=== PATIENT | female | born 1955 | race Caucasian/White ===

== ENCOUNTER → 2022-10-14 | Outpatient (CLI) | payer BC ==
[2022-10-14 15:42] LABS: Basophils # (A) 0.03 X 10*3/uL (0.00-0.10); Basophils % (A) 0.5 %; Eosinophils # (A) 0.15 X 10*3/uL (0.04-0.35); Eosinophils % (A) 2.6 %; HCT 47.8 % (37.2-46.3); HGB 15.2 g/dL (12.0-15.0); Immature Grans, Automated 0.4 %; Lymphocytes # (A) 2.05 X 10*3/uL (0.90-5.00); MCHC 31.8 g/dL (32.0-37.0); MCV 91.2 fL (80.0-97.0); Mean Platelet Volume 11.7 fL (9.5-12.2); Monocytes # (A) 0.39 X 10*3/uL (0.20-1.00); Monocytes % (A) 6.8 %; NRBC Per 100 WBC 0 /100 WBCS (0.0-0.0); Neutrophils # (A) 3.06 X 10*3/uL (1.80-7.70); Neutrophils % (A) 53.7 %; Platelet Count 182 X 10*3/uL (140-440); RBC 5.24 X 10*6/uL (4.10-5.20); RDW 12.7 % (11.5-14.5)
[2022-10-14 16:26] LABS: ALT 23 U/L (8-44); AST 18 U/L (13-35); African American GFR (CKD) 89.3 (60.0-200.0); Albumin 4.6 g/dL (3.8-4.9); Albumin/Globulin Ratio 2.08 (1.60-3.17); Alkaline Phosphatase 105 U/L (41-126); BUN/Creat Ratio 15.54 Ratio (12.00-20.00); Blood Urea Nitrogen 12.4 mg/dL (9.0-27.0); Calcium 10.2 mg/dL (8.7-10.3); Chloride 108 mmol/L (96-109); Chol/HDL Ratio 3.23 Ratio; Globulin 2.2 g/dL (1.6-3.3); Glucose 121 mg/dL (70-110); Non-African American GFR(CKD) 77.1 (60.0-200.0); Potassium 5.2 mmol/L (3.5-5.5); Sodium 143 mmol/L (135-145); Total Protein 6.7 g/dL (6.2-8.2)
--- NOTE | 2022-10-20 08:40 | MM ---
Reason for Exam: Screening (asymptomatic). Last mammogram was performed 3 year(s) and 0 month(s) ago. Patient History: Menarche at age 14. First Full-Term at age 27. Postmenopausal. Patient has history of breast feeding. Risk Values: Mary Kay 5 year model risk: 1.9%. NCI Lifetime model risk: 6.7%. Prior Study Comparison: 01[facility]11[facility] 10[facility]/2019 [facility] . Tissue Density: The breast tissue is heterogeneously dense. This may lower the sensitivity of mammography. Findings: Analyzed By CAD. There is no suspicious group of microcalcifications or new suspicious mass in either breast. Overall Assessment: Negative, BI-RAD 1 Management: Screening Mammogram of both breasts in 1 year. A clinical breast exam by your physician is recommended on an annual basis and results should be correlated with mammographic findings. Electronically signed and approved by: Rui Becerra D.O.
== END | disposition home or self-care (01) ==
LOC: RADMAMWWP 07:08
PROVIDERS: ATTEND Family Medicine
DX: Z12.31 Encounter for screening mammogram for malignant neoplasm of breast (principal); Z00.01 Encounter for general adult medical examination with abnormal findings; E55.9 Vitamin D deficiency, unspecified; Z78.0 Asymptomatic menopausal state
CPT/HCPCS: 77063; 77067; 80053; 80061; 82306; 83036; 84439; 84443; 85025

== ENCOUNTER → 2023-08-11 | Outpatient (CLI) | payer MEDICARE ==
--- NOTE | 2023-08-11 13:42 | CT ---
EXAMINATION TYPE: CT sinus wo con DATE OF EXAM: 08/11/2023 COMPARISON: None available. HISTORY: Chronic sinusitis and congestion. CT DLP: 509 mGycm. Automated Exposure Control for Dose Reduction was Utilized. TECHNIQUE: CT scan of the sinuses is performed without contrast, axial images are obtained, coronal r eformatted images are also reviewed. FINDINGS: There is some partial opacification involving the right sphenoid sinus. There is some minim al mucosal thickening also seen within the left maxillary sinus. The sinuses and mastoid air cells ot herwise appear clear. There are no air-fluid levels.. There is a cavum septum pellucidum. The intracranial contents otherwise appear unremarkable.. The gl obes are intact bilaterally. IMPRESSION: Minimal sinus disease as above with no acute air-fluid levels and no additional acute findings.
== END | disposition home or self-care (01) ==
LOC: RADCTMAIN 13:05
PROVIDERS: ATTEND Otolaryngology
DX: J32.0 Chronic maxillary sinusitis (principal)
CPT/HCPCS: 70486